=== PATIENT | female | born 1945 ===

== ENCOUNTER 2017-06-30 07:36 | Day surgery (SDC) | payer MEDICARE ==
[2017-06-19 14:10] VITALS: BMI 28.3
[2017-06-30] MEDS ORDERED: Propofol 10 mg/ml Inj (20 ML) ONE (09:39)
[2017-06-30] MEDS ORDERED: Lactated Ringer's 1,000 ML IV ONE (09:40)
[2017-06-30] MEDS ORDERED: HYDROmorphone 0.5 mg/0.5 ml ISec IVP PRN (10:21)
[2017-06-30 13:27] VITALS: RESP 18
[2017-06-30 14:13] VITALS: BP 156/75; PULSE 65; TEMP 98; O2SAT 98
--- NOTE | 2017-07-03 02:30 | OP ---
PROCEDURE DATE: 06/30/2017 PREOPERATIVE DIAGNOSIS: Abnormal fluid in the endometrial canal and cervical stenosis. POSTOPERATIVE DIAGNOSIS: Atrophic cystic endometrium, endometrial polyp. PROCEDURE: Hysteroscopy, dilation and curettage and directed dilation and curettage polypectomy with MyoSure. SURGEON: Margaret Harmon MD TYPE OF ANESTHESIA: ASA class II. ESTIMATED BLOOD LOSS: 10 mL OPERATIVE INDICATION: This is a 72-year-old female with ultrasound findings of recurrent endometrial fluid and thickening status post recent D&C in August. She still has cervical stenosis due to the concern for postmenopausal status and recurrent fluid. The patient was counseled and has above procedure. OPERATIVE FINDINGS: Atrophic cystic endometrium and polyp. No evidence of perforation at the end of the case. OPERATIVE PROCEDURE: The patient was taken to the OR and after adequate anesthesia was induced, placed in the dorsal lithotomy position. Bimanual exam was performed. There is no external lesion and no adnexal masses. The cervix was normal in appearance. After the vagina was prepped and draped in the usual sterile fashion, the anterior lip of the cervix was grasped using single tooth tenaculum and the cervix was sterile dilated to allow the passage of MyoSure and operative hysteroscope. The findings above were discovered. A directed D&C and polypectomy was carried out circumferentially. No evidence of perforation at the end of the case. All instruments were removed. Sponge and needle counts are correct x2. The patient was allowed to do recovery in an excellent condition. Specimen directed endometrial curetting and polyp. Condition stable for PACU. I was present and for the entire procedure. Margaret Harmon MD
== END 2017-06-30 14:10 | disposition home or self-care (01) ==
LOC: C.SDS 07:36
PROVIDERS: ATTEND Obstetrics & Gynecology
DX: N84.0 Polyp of corpus uteri (principal); N85.00 Endometrial hyperplasia, unspecified
CPT/HCPCS: 58558; 88305; J1100; J1885; J2405; J2704; J3010; J7120